=== PATIENT | female | born 1985 ===

== ENCOUNTER 2017-09-04 17:40 | Emergency (ER) | payer OTHER ==
[2017-09-04 17:52] VITALS: RESP 20
[2017-09-04] MEDS ORDERED: Lidocaine 5% Patch TD STA (18:37)
[2017-09-04 18:45] LABS: RBC URINE 1 /hpf (0-3); URINE BACTERIA OCC (<OCC); URINE BILIRUBIN NEGATIVE (NEGATIVE); URINE BLOOD NEGATIVE (NEGATIVE); URINE COLOR Yellow (YELLOW); URINE GLUCOSE (UA) NORMAL (Normal); URINE KETONE NEGATIVE (NEGATIVE); URINE LEUKOCYTE ESTERASE NEG Leu/uL (Negative); URINE PROTEIN NEGATIVE (NEGATIVE); URINE UROBILINOGEN NORMAL mg/dL (0.2-1.0); WBC URINE 3 /hpf (0-5)
--- NOTE | 2017-09-04 18:46 | C.PDOC ---
History Of Present Illness 32 year old female presents to the ED for evaluation of left-sided, lower back pain which began after she lifted something heavy 2 days ago. Patient states her pain is non-radiating and denies fever, chills, abdominal pain, urinary/ bowel incontinence, extremity numbness/weakness, or direct trauma/injury to the affected area. Time Seen by Provider: 09/04/17 18:09 Chief Complaint (Nursing): Back Pain History Per: Patient History/Exam Limitations: no limitations Onset/Duration Of Symptoms: Days (2) Current Symptoms Are (Timing): Still Present Quality Of Discomfort: Gas Previous Symptoms: Back Pain Associated Symptoms: denies: Incontinence, New Weakness, New Numbness Additional History Per: Patient Past Medical History Reviewed: Historical Data, Nursing Documentation, Vital Signs Vital Signs: Last Vital Signs Temp 97.9 F 09/04/17 19:48 Pulse 79 09/04/17 19:48 Resp 20 09/04/17 19:48 BP 114/68 09/04/17 19:48 Pulse Ox 99 09/04/17 20:04 - Medical History PMH: No Chronic Diseases Surgical History: No Surg Hx Family History: States: Unknown Family Hx - Social History Hx Alcohol Use: No Hx Substance Use: No - Immunization History Hx Tetanus Toxoid Vaccination: No Hx Influenza Vaccination: No Hx Pneumococcal Vaccination: No Review Of Systems Constitutional: Negative for: Fever, Chills Gastrointestinal: Negative for: Abdominal Pain Musculoskeletal: Positive for: Back Pain (left-sided, lower ). Negative for: Leg Pain Neurological: Negative for: Weakness, Numbness Physical Exam - Physical Exam Appears: Non-toxic, No Acute Distress Skin: Normal Color, Warm, Dry Head: Atraumatic, Normacephalic Eye(s): bilateral: Normal Inspection Oral Mucosa: Moist Neck: Normal ROM, Supple Chest: Symmetrical, No Deformity, No Tenderness Cardiovascular: Rhythm Regular, No Murmur Respiratory: Normal Breath Sounds, No Rales, No Rhonchi, No Wheezing Gastrointestinal/Abdominal: Soft, No Tenderness, No Guarding, No Rebound Back: Paraspinal Tenderness (left-sided, lumbar ) Extremity: Normal ROM, Capillary Refill (less than 2 seconds ) Neurological/Psych: Oriented x3, Normal Speech, Normal Cognition, Normal Motor Gait: Steady ED Course And Treatment O2 Sat by Pulse Oximetry: 99 (on RA) Pulse Ox Interpretation: Normal Medical Decision Making Medical Decision Making: Progress: UA ordered and reviewed. Flexeril PO, Lidoderm TD, and Toradol IM administered. On re-exam, the patient reports improvement of symptoms. Lungs are CTA, heart is RRR, Ambulatory in the ED with steady gait. Abdomen is soft, non-tender and tolerating PO well. Ambulatory in the ED with gait. Follow up with the medical doctor within 1-2 days. Return if worsened. Disposition - Disposition Referrals: [facility] [Outside] Disposition: HOME/ ROUTINE Disposition Time: 20:02 Condition: GOOD Additional Instructions: Follow up with the medical doctor within 1-2 days. Return if worsened. 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 - Scribe Statement The provider has reviewed the documentation as recorded by the Scribe (Dania Allen) All medical record entries made by the Scribe were at my direction and personally dictated by me. I have reviewed the chart and agree that the record accurately reflects my personal performance of the history, physical exam, medical decision making, and the department course for this patient. I have also personally directed, reviewed, and agree with the discharge instructions and disposition.
[2017-09-04] MEDS ORDERED: Lidocaine 5% Patch TD ONE (18:49)
[2017-09-04 19:51] VITALS: BP 114/68; PULSE 79; TEMP 97.9
[2017-09-04 20:04] VITALS: O2SAT 99
== END 2017-09-04 20:17 | disposition home or self-care (01) ==
LOC: C.ER 17:40
DX: M54.5 Low back pain (principal)
CPT/HCPCS: 81001; 96372; 99284; J1885